=== PATIENT | female | born 1960 | race Two or more races ===

== ENCOUNTER 2017-04-08 05:39 | Day surgery (SDC) | payer OTHER ==
--- NOTE | 2017-04-05 23:37 | PREOPHP ---
DATE OF ADMISSION: 04/08/2017 HISTORY OF PRESENT ILLNESS: This is a 56-year-old female, 3, para 3 with 3 vaginal deliveries. The patient's last period was in 2014. She had her menopause then. She had no problems except for urinary frequency with a history of fibroids and endometrial hyperplasia. This patient is scheduled for a fractional D and C and hysteroscopy. REVIEW OF SYSTEMS: Pertinent for hyperplasia. She had no cardiovascular events, no lung disease, no heart disease, no endocrine disease, neurological, or orthopedic disease. ALLERGIES: SHE IS NOT ALLERGIC TO ANY MEDICATIONS. SOCIAL HISTORY: She does not drink or smoke and has no history of drugs. PAST SURGICAL HISTORY: Appendectomy, tummy tuck, and breast implants. FAMILY HISTORY: Noncontributory. MEDICATIONS: At this time she is only taking Zyrtec. PHYSICAL EXAMINATION: GENERAL: General appearance is good. VITAL SIGNS: Blood pressure 130/90, pulse is 80, respirations 16, temperature 98.6. She weighs 138, and she is 5'2". HEAD AND NECK: Normal. BREASTS: Breast implants. No masses palpated. CHEST: Clear. HEART: Normal sinus rhythm. LUNGS: Normal. ABDOMEN: Soft, nontender, no masses. GENITOURINARY: Genitalia with a cystocele, grade 3. Uterus with fibroid left-sided. Uterus of normal size for age. The adnexa are nonpalpable. EXTREMITIES: Normal. DIAGNOSES: Cystourethrocele grade 3, urinary urgency, vaginal atrophy, old fibroid, menopausal syndrome, endometrial hyperplasia, and gall stones. PLAN: She has been offered a fractional D and C, hysteroscopy, to followup on the results of the ultrasound. She has not had any bleeding or pelvic pain. She only has some vaginal dryness. An ultrasound was obtained that revealed that she has endometrial hyperplasia, and for this reason she is scheduled for this operative procedure. The ultrasound stated she had fibroids, atrophic endometrium, both ovaries were normal, and the endometrium had the thickness that is not appropriate for her age and menopausal stage. Both ovaries were small. The patient has been advised of the possible risks and possible complications of the procedure with her alternatives and options. Written information was provided. She had no more questions, and agreed to go ahead with the procedure with full understanding and no more questions. Dictated By: Radha Taylor MD /rodney/hollie /Document#: [id number]
[2017-04-07 10:38] VITALS: Ht 157.5 cm; Wt 62.1 kg
[~2017-04-08] VITALS: Ht 157.5 cm; Wt 62.1 kg
[2017-04-08] VITALS (9 sets, daily range): BP systolic 139–166; BP diastolic 64–85; PULSE 60–80; RESP 12–22
[2017-04-08] MEDS ORDERED: CEFAZOLIN 2 GM/50 ML (PMX) 50 ML IVPB ONE (06:00)
[2017-04-08] MEDS ORDERED: CETI-240 PO (06:26)
[2017-04-08] MEDS ORDERED: EST42.5C (06:26)
--- NOTE | 2017-04-08 08:14 | HPN ---
Date/Time of Note Date/Time of Note DATE: 04/08/17 TIME: 08:13 Interval H&P Admission Note Pt. seen H&P reviewed: No system changes ILSA MCKENNA MD Apr 08, 2017 08:14
[2017-04-08] MEDS ORDERED: FENTAnyl 50 MCG/ML VIAL ONE (08:20)
[2017-04-08] MEDS ORDERED: MIDAZOLAM 1 MG/ML 2 ML INJ ONE ×2 (08:20→08:21)
[2017-04-08] MEDS ORDERED: PROPOFOL 20 ML ONE (08:55)
[2017-04-08] MEDS ORDERED: LIDOCAINE 2% (SDV) 5 ML INJ ONE (08:55)
[2017-04-08] MEDS ORDERED: CEFAZOLIN 1 GM INJ ONE (08:56)
[2017-04-08] MEDS ORDERED: ONDANSETRON 4 MG INJ ONE (08:57)
--- NOTE | 2017-04-08 09:02 | PD.PPDC ---
WAITER/WAITRESS COUNTER Discharge Instruction Condition Patient Condition: Good Diet Diet: Resume Regular Diet Activity/Restrictions Activity: Normal Activity May Shower Restrictions: No Exercising No Lifting No Driving No Sexual Activity Nothing in the Vagina No [place] No Tampons, douche Return to clinic for [employer] Instructions: Fever greater than 101 Chills Worsening abdominal pain Excessive Vaginal Bleeding More than 2 pads per hour Unable to tolerate diet ILSA MCKENNA MD Apr 08, 2017 09:02
[2017-04-08] MEDS ORDERED: KETOROLAC 30 MG INJ IV PRN (09:30)
--- NOTE | 2017-04-08 09:32 | OPR ---
Date/Time of Note Date/Time of Note DATE: 04/08/17 TIME: 09:31 Operative Report Procedure Date: Apr 08, 2017 Preoperative Diagnosis endometrial hyperplasia Postoperative Diagnosis same Surgeon see signature line Anesthesia Type: general Anesthesiologist: PAWAN CASTANEDA MD Estimated Blood Loss: minimal Specimens endometrial tissue Grafts/Implants: none Complications: no Pt Condition Post Procedure: stable Disposition: PACU ILSA MCKENNA MD Apr 08, 2017 09:32
--- NOTE | 2017-04-08 11:27 | OPR ---
DATE OF OPERATION: 04/08/2017 PREOPERATIVE DIAGNOSES: 1. Endometrial hyperplasia,. 2. Pelvic prolapse with cystourethrocele, grade 3. 3. All fibroid uterus. 4. Gallstones. 5. Mild hypertension. 6. Hypercholesterolemia. POSTOPERATIVE DIAGNOSES: 1. Endometrial hyperplasia. 2. Pelvic prolapse with cystourethrocele, grade 3. 3. All fibroid uterus. 4. Gallstones. 5. Mild hypertension. 6. Hypercholesterolemia. 7. Polyps, endometrial. PROCEDURE DONE: Fractional dilation and curettage, hysteroscopy under general anesthesia done with Estrada Franklin MD SURGEON: Radha Taylor MD COMPLICATIONS: None. PROCEDURE: The patient was given general anesthesia, placed in the lithotomy position. The perineal vaginal area was prepped and draped. The pelvic prolapse was seen with a marked cystourethrocele to a grade 3 or 4. The cervix was also prolapsed to a grade 3. Uterus was normal size, and adnexa were nonpalpable. Rectocele was found as well, grade 2-3. The vaginal speculum was applied, and the cervix was held, and the endocervical curettage was done. The uterus was sounded to a depth of 3 inches and dilated to a number 7 Hegar, and the scope was placed in. The visualization of the uterus endometrial area revealed that there was a polyp at the fundus area on the right side of the patient. With polyp forceps, we attempted to remove this, and finally we removed it after scraping the cavity anteriorly, posteriorly, laterally and in the fundus and applying several times the polyp forceps. The procedure was finished by removing all the instruments. The patient tolerated the procedure well and left the OR awake and stable. Sponge counts and instrument counts were correct. Intravenous antibiotics were given for prophylaxis. Dictated By: Radha Taylor MD /rodney/arely /Document#: [id number]
== END 2017-04-08 11:03 | disposition home or self-care (01) ==
LOC: SDS 05:39
PROVIDERS: ATTEND Obstetrics & Gynecology
DX: N93.9 Abnormal uterine and vaginal bleeding, unspecified (principal); N85.00 Endometrial hyperplasia, unspecified; D25.9 Leiomyoma of uterus, unspecified; K80.20 Calculus of gallbladder without cholecystitis without obstruction; I10 Essential (primary) hypertension; E78.00 Pure hypercholesterolemia, unspecified
CPT/HCPCS: 58558; 84703; 88305; J0690; J2250; J3010; Z7512; Z7610; J2405